=== PATIENT | male | born 1965 | race Caucasian/White ===

== ENCOUNTER 2017-02-18 09:15 | Inpatient (IN) ==
--- NOTE | 2017-02-18 11:37 | Cardiology History & Physical ---
Date of Encounter: 02/18/17 Time of Encounter: 11:25 Assessment and Plan (1) Atrial flutter with rapid ventricular response Current Visit: Yes Status: Acute The assessment and plan as outlined above was discussed with the patient and/or family members who expressed understanding and agreement. All questions were answered. New diagnosis of atrial flutter with RVR. HR increased to 260 bpm during stress test. HR decreased to 130's with rest. Unknown onset. C/o dyspnea and vision changes with activity for the last two months. Likely related to atrial flutter. Start heparin gtt for AC. Start cardizem gtt for rate control. CHADS VASC 1 for HTN. Stress echocardiogram pending. Will need full echocardiogram once heart rate is better controlled. Check TSH. Recommend EP consult for further recommendation. (2) Hypertension Current Visit: Yes Status: Acute The assessment and plan as outlined above was discussed with the patient and/or family members who expressed understanding and agreement. All questions were answered. B/p acceptable. Hold losartan to allow for rate controlling meds. Qualifiers: Hypertension type: essential hypertension Qualified Code(s): I10 - Essential (primary) hypertension History of Present Illness Chief complaint: dyspnea HPI: Mr. Harley is a 51 year old male with a history of hypertension and tobacco abuse who presented for scheduled exercise stress echocardiogram. Stress test was ordered by his PCP for the c/o dyspnea and vision changes with exertion. Symptoms started two and a half months ago and occur with any exertional activity. He first noticed his symptoms when he was push mowing. During his stress test he developed wide complex tahycardia with HR up to 260 bpm. He c/o dyspnea. His stress test was stopped and he was instructed to cough. Oxygen was applied. Defibrillator pads were applied. The patient remained alert and oriented and his b/p was 140/86. IV was started and NS started. After about 2 min his HR slowed down to 140 on its own. He denies chest pain. EKG reviewed by the plush brusher and he was seen to have atrial flutter with RVR. He is now recommended for admission for continued atrial flutter with RVR. He denies previous cardiac history. Reports having an echocardiogram Past Med Surg Social Fam HX - Past Medical History Medical history: arthritis, GERD, hypertension Psychiatric history: anxiety, depression - Past Surgical History Surgical History: appendectomy, herniorrhaphy - Social History Smoking Status: Current every day smoker Smokeless Tobacco Status: No Alcohol use: none Drug use: none Medications and Allergies Gabapentin [Gralise] 300 mg PO 1-3XD PRN #90 tab 12/15/14 [Rx] Losartan Potassium [Cozaar] 50 mg PO DAILY 02/18/17 [History] 3 Allergy/AdvReac Type Severity Reaction Status Date / Time lisinopril AdvReac Anaphylaxis Verified 12/15/14 08:59 All Systems Review: A 10-system review of systems was performed and is negative for pertinent findings except as documented above in the HPI. Physical Examination HR 138, b/p 140/86, resp 22, General: Conversant, No Apparent Distress, Other (warm and sweating) HEENT: Atraumatic, Normocephaly, Mucus Membranes Moist Neck: No JVD, Normal carotid pulses Cardiac: Other (irregular) Lungs: Normal Breath Sounds, No Wheeze, Rales, Rhonchi Neuro: Alert and responsive, No focal deficits noted Abdomen: Soft, Non-Tender Skin: No rashes noted on visualized skin Musculoskeletal: No Chest Wall Tenderness Extremities: No Clubbing, No Cyanosis, No Edema, Normal Pulses Results - Imaging and Cardiology Stress Test: pending Echo: pending - EKG Interpretation EKG results cardiology: personally reviewed (Initial EKG thought to be NSR with first degree block and RBBB. Regular. Reviewed with EP and EKG read as aflutter 2:1)
[2017-02-18] MEDS ORDERED: Naloxone 0.4 MG/ML INJ IVP PRN (11:53)
--- NOTE | 2017-02-18 12:30 | Electrophysiology Consult Note ---
<Osman Kyle R - Last Filed: 02/18/17 12:41> Date of Encounter: 02/18/17 Time of Encounter: 12:28 Assessment and Plan (1) Atrial flutter with rapid ventricular response Current Visit: Yes Status: Acute Per EP: New diagnosis of atrial flutter with RVR. HR increased to 260 bpm during stress test. HR decreased to 130's with rest. Unknown onset. C/o dyspnea and vision changes with activity for the last two months. Likely related to atrial flutter. Start heparin gtt for AC. Start cardizem gtt for rate control. CHADS VASC 1 for HTN. Will discuss if longterm anticoagulation is warranted. Heparin for now. Stress echocardiogram pending. Will need full echocardiogram once heart rate is better controlled. Check TSH, CBC, BMP. Recommend rate control strategy for now. Will continue to follow and await stress echo results for further recommendations. Discussion w patient/family: The assessment and plan as outlined above was discussed with the patient and/or family members who expressed understanding and agreement. All questions were answered. Thank you for involving us in the care of your patient. Please call with any questions. I will discuss all the above with Dr. Dane Velazquez and make changes as necessary. History of Present Illness Consult date: 02/18/17 Requesting physician: Jeb Mclain Consult reason: A-Flutter RVR Chief complaint: dyspnea, lightheadedness History of present illness: Mr. Harley is a 51 year old male with a history of hypertension and tobacco abuse who presented for outpatient exercise stress echocardiogram. Stress test was ordered by his PCP for the c/o dyspnea and vision changes with exertion. Symptoms started two and a half months ago and occur with any exertional activity. He first noticed his symptoms when he was push mowing. During his stress test he developed wide complex tahycardia with HR up to 260 bpm. He c/o dyspnea. His stress test was stopped and he was instructed to cough. Oxygen was applied. Defibrillator pads were applied. The patient remained alert and oriented and his b/p was 140/86. IV was started and NS started. After about 2 min his HR slowed down to 140 on its own. He denies chest pain. EKG reviewed by the mri technician and he was seen to have atrial flutter with RVR. He is now recommended for admission for continued atrial flutter with RVR. He denies previous cardiac history. EP consulted for new diagnosis of A-Flutter. Past Med Surg Social Fam HX - Past Medical History Medical history: arthritis, GERD, hypertension Psychiatric history: anxiety, depression - Past Surgical History Surgical History: appendectomy, herniorrhaphy - Social History Smoking Status: Current every day smoker Smokeless Tobacco Status: No Alcohol use: none Drug use: none Medications and Allergies Buprenorphin-Naloxon 8-2 mg Sl 0.5 tab SL 1-2XD 02/18/17 [History] Losartan Potassium [Cozaar] 50 mg PO DAILY 02/18/17 [History] Naproxen 550 mg PO 1-2XD 02/18/17 [History] Omeprazole [PriLOSEC] 20 mg PO DAILY 02/18/17 [History] Tamsulosin [Flomax] 0.4 mg PO DAILY 02/18/17 [History] hydroCHLOROthiazide [Hydrochlorothiazide] 50 mg PO 02/18/17 [History] 3 Allergy/AdvReac Type Severity Reaction Status Date / Time lisinopril AdvReac Anaphylaxis Verified 12/15/14 08:59 All Systems Review: A 10-system review of systems was performed and is negative for pertinent findings except as documented above in the HPI. - Cardiovascular Cardiovascular: as per HPI, dyspnea at rest, dyspnea on exertion - Neurological Neurological: loss of vision Physical Examination Intake and Output 02/17/17 02/18/17 02/18/17 23:59 07:59 15:59 Other: Weight 106 kg Patient Weight 02/18/17 23:59 Weight 106 kg General: Conversant, No Apparent Distress HEENT: Atraumatic, Normocephaly, Mucus Membranes Moist Neck: No JVD, Normal carotid pulses Cardiac: Other (irregular) Lungs: Normal Breath Sounds, No Wheeze, Rales, Rhonchi Neuro: Alert and responsive, No focal deficits noted Abdomen: Soft, Non-Tender Skin: No rashes noted on visualized skin Musculoskeletal: No Chest Wall Tenderness Extremities: No Clubbing, No Cyanosis, No Edema, Normal Pulses Results - Imaging and Cardiology Stress Test: pending - EKG Interpretation EKG results cardiology: personally reviewed (A-Flutter RVR) Consult Discharge Plan - Plan Referrals: Jose Mccabe, PAC [Primary Care Provider] - <Dane Velazquez - Last Filed: 02/18/17 15:17> Date of Encounter: 02/18/17 - Attending Attestation I have personally performed a face to face evaluation on this patient. I have reviewed and agree with the care plan. History and Exam by me shows: Underwent stress test and was noted to be in atrial flutter with RVR. On further history has probably been in uncontrolled AFL for several weeks. Would rate control and anticoagulate and check echo. Assessment and Plan Discussion w patient/family: The assessment and plan as outlined above was discussed with the patient and/or family members who expressed understanding and agreement. All questions were answered. Thank you for involving us in the care of your patient. Please call with any questions. History of Present Illness History of present illness: Mr. Harley is a 51 year old male All Systems Review: A 10-system review of systems was performed and is negative for pertinent findings except as documented above in the HPI. Physical Examination Vital Signs, Last 4 Hours Temp Pulse Resp BP Pulse Ox 02/18/17 12:46 100.5 F H 141 14 125/102 96 Results 02/18/17 12:36 02/18/17 12:36 Lab Results 02/18/17 02/18/17 02/18/17 12:36 12:36 12:36 WBC 8.9 Hgb 16.0 Hct 47.7 Plt Count 228 INR 1.1 Sodium 139 Potassium 3.7 Chloride 103 Carbon Dioxide 26 BUN 21 Creatinine 0.73 Glucose 107 H Calcium 9.3 TSH 1.263
[2017-02-18] MEDS: dilTIAZem HCl 100 MG in D5% in Water 50 ML IVC SCH ×2 (12:34→19:59)
[2017-02-18] MEDS ORDERED: FLUARIX QUAD 2017-18 36MOS UP/PF 0.5 ML SYRINGE IM ONE (13:01)
[2017-02-18 13:23] LABS: Basophils # 0.1 K/mcL (0.0-0.2); Basophils % 0.9 %; Eosinophils % 0.1 %; Hematocrit 47.7 % (37.5-50.1); Immature Granulocytes % 0.3 % (0-4); Lymphocytes # 1.8 K/mcL (0.6-4.6); Lymphocytes % 20.3 %; Mean Corpuscular HGB Conc 33.5 g/dL (31.6-35.5); Mean Corpuscular Hemoglobin 29.6 pg (28.0-33.3); Mean Corpuscular Volume 88.2 fL (83.0-100.0); Mean Platelet Volume 10.8 fL (9.4-12.4); Monocytes # 0.5 K/mcL (0.0-1.3); Monocytes % 5.4 %; Neutrophils # 6.5 K/mcL (1.6-8.9); Platelet Count 228 K/mcL (140-400); Red Blood Count 5.41 M/mcL (4.19-5.50); Red Cell Distribution Width 13.2 % (11.5-14.5)
[2017-02-18 13:26] LABS: INR 1.1; Prothrombin Time 11.5 Seconds (9.4-12.1)
[2017-02-18 13:33] LABS: BUN/Creatinine Ratio 29 (6-26); Blood Urea Nitrogen 21 mg/dL (8-26); Calcium 9.3 mg/dL (8.6-10.8); Carbon Dioxide 26 mEq/L (19-29); Chloride 103 mEq/L (98-109); Glucose 107 mg/dL (70-99); Osmolality,Calculated 291 (280-300); Potassium 3.7 mEq/L (3.5-4.5); Sodium 139 mEq/L (136-145); eGFR For African Americans > 60 (> 60); eGFR For Non-African Americans > 60 (> 60)
[2017-02-18 13:55] LABS: Thyroid Stimulating Hormone 1.263 mcIU/mL (0.350-4.840)
[2017-02-18] MEDS ORDERED: *HR* Heparin 5,000 UNIT/ML VIAL IVP ONE (15:45)
[2017-02-18] MEDS ORDERED: *HR* Heparin 5,000 UNIT/ML VIAL IVP PRN ×2 (15:45)
[2017-02-18 16:41] LABS: Hematocrit 46.4 % (37.5-50.1); Hemoglobin 15.7 g/dL (12.9-16.9); Mean Corpuscular HGB Conc 33.8 g/dL (31.6-35.5); Mean Corpuscular Hemoglobin 29.7 pg (28.0-33.3); Mean Corpuscular Volume 87.9 fL (83.0-100.0); Mean Platelet Volume 10.9 fL (9.4-12.4); Platelet Count 218 K/mcL (140-400); Red Blood Count 5.28 M/mcL (4.19-5.50); Red Cell Distribution Width 13.2 % (11.5-14.5)
[2017-02-18 16:55] LABS: INR 1.1; Prothrombin Time 12.3 Seconds (9.4-12.1)
[2017-02-18 17:10] LABS: Activated Partial Thrombo Time 32.8 Seconds (26.0-36.0)
[2017-02-18] MEDS: Heparin 25,000 UNIT/500 ML D5W 25,000 UNIT/500 ML MLS IVC SCH (17:32)
[2017-02-18] MEDS ORDERED: *HR* Buprenorphine HCl 2 MG SUBLINGUAL TABLET SL SCH (18:00)
--- NOTE | 2017-02-18 18:31 | Electrocardiograph Report ---
[address] [place] [address] Test Date: 2017-02-18 Pat Name: Shadi Harley Department: 106 Room: 11 Gender: M Evaluation Manager: : 1965 Requested By: Riccardo Ibarra Order Number: [id number] Reading MD: Kaylah Velazquez Measurements Intervals [place] Rate: 116 P: TX: 0 QRS: -27 QRSD: 116 T: 21 QT: 292 QTc: 361 Interpretive Statements ATRIAL FLUTTER WITH RAPID VENTRICULAR RESPONSE INCOMPLETE RIGHT BUNDLE BRANCH BLOCK SEPTAL MYOCARDIAL INFARCTION, PROBABLY OLD Electronically Signed On 02-18-2017 18:29:06 EST by Kaylah Velazquez
[2017-02-18] MEDS ORDERED: (Buprenorphine Hcl/Naloxone Hcl [Suboxone 8 Mg-2 Mg S) SL SCH (20:00)
[2017-02-19] MEDS: Heparin 25,000 UNIT/500 ML D5W 25,000 UNIT/500 ML MLS IVC SCH (08:53)
[2017-02-19] MEDS: *HR* Buprenorphine HCl 2 MG SUBLINGUAL TABLET SL SCH ×2 (08:55→15:48)
[2017-02-19] MEDS ORDERED: APIXABAN 5 MG TABLET PO SCH (11:45)
[2017-02-19] MEDS ORDERED: Diltiazem CD (24hr) 180 MG CAPSULE PO SCH (11:45)
--- NOTE | 2017-02-19 13:32 | Discharge Summary ---
Date of Encounter: 02/19/17 Time of Encounter: 13:29 - Discharge Diagnosis (1) Atrial flutter with rapid ventricular response Priority: Primary Status: Acute (2) Hypertension Priority: Secondary Status: Chronic Qualifiers: Hypertension type: essential hypertension Qualified Code(s): I10 - Essential (primary) hypertension - Discharge Medications Prescriptions: Apixaban [Eliquis] 5 mg PO BID #60 tablet Diltiazem CD (24hr) [Cardizem CD] 180 mg PO DAILY #30 cap.er.24h Home Medications: Buprenorphine HCl/Naloxone HCl [Suboxone 8 mg-2 mg Sl Film] 0.25 each SL 1999 [History] Buprenorphine HCl/Naloxone HCl [Suboxone 8 mg-2 mg Sl Film] 0.5 each SL 0800, 1400 02/18/17 [History] Omeprazole [PriLOSEC] 20 mg PO DAILY 02/18/17 [History] Tamsulosin [Flomax] 0.4 mg PO DAILY 02/18/17 [History] hydroCHLOROthiazide [Hydrochlorothiazide] 50 mg PO DAILY 02/18/17 [History] Apixaban [Eliquis] 5 mg PO BID #60 tablet 02/19/17 [Rx] Diltiazem CD (24hr) [Cardizem CD] 180 mg PO DAILY #30 cap.er.24h 02/19/17 [Rx] Allergies/Adverse Reactions: 3 Allergy/AdvReac Type Severity Reaction Status Date / Time lisinopril AdvReac Anaphylaxis Verified 12/15/14 08:59 Procedures/tests Complete & Pending: Procedures Performed prior 72 hours Category Date Time Status ECG 12 lead ECG [ECG] Routine Y 02/18/17 10:53 Completed EV stress echo Routine Y 02/18/17 09:30 Completed Date of admission: 02/19/17 09:11 Primary care physician: Jose Mccabe Consults: None Discharging clinician: Jeb Mclain Anticipated date of discharge: 02/19/17 - Patient Status Disposition: Home, Self-Care Condition: Good Functional capacity at discharge: independent ambulation Overall status at discharge: patient is progressing back to baseline - Discharge Instructions Follow Up With: Jose Mccabe, PAC [Primary Care Provider] - - Diet and Activity Activity: increase activity as tolerated Diet: low fat, low cholesterol - Hospital Course Hospital course: Mr. Harley is a 51 year old male with a history of HTN and tobacco use who presented for an out patient stress echocardiogram. He developed atrial flutter / afib with RVR, HR 260 bpm during his exam. Baseline EKG showed 2:1 atrial flutter, initially thought to be SR with 1st degree block. Unknown timing of onset. Patient c/o dyspnea and vision changes with exertional activity for the last two and a half months. He did complete his stress echocardiagram. Stress images and EKG was non-diagnostic for ischemia in the setting of arrhythmia. LVEF was 55%. Inconclusive stress test results reviewed with Dr. Ibarra. Patient denies chest pain. Symptoms likely from atrial flutter. Can consider alternative stress test in the future if indicated. No further testing in- patient. TSH was normal. He was seen by EP and rate control therapy and anticoagulation is recommended for now. He was rate controlled on cardizem gtt and converted to oral cardizem. His losartan was discontinued to allow for addition of cardizem. Avg HR over the last 24 hours was 85 bpm. Anticoagulation with warfarin VS NOAC indication, use, and SE reviewed. He was agreeable to NOAC. Eliquis was pantoja checked and he does not have a co-pay. He is now being discharged home with close out-pt f/u for further recommendations. WIll need full TTE in the near future. Follow-up will be scheduled in the afib clinic in 1-2 weeks. Time spent discussing smoking cessation with patient: more than 10 minutes - Time Spent with Patient Total time spent providing and/or coordinating discharge services:1hr Greater than 30 minutes Physical Examination Vital Signs, Last 4 Hours Temp Pulse Resp BP Pulse Ox 02/19/17 12:57 91 20 100/70 95 02/19/17 12:01 97.8 F General: Conversant, No Apparent Distress HEENT: Atraumatic, Normocephaly, Mucus Membranes Moist Neck: No JVD, Normal carotid pulses Cardiac: Other (Irregularly irregular.) Lungs: Normal Breath Sounds, No Wheeze, Rales, Rhonchi Neuro: Alert and responsive, No focal deficits noted Abdomen: Soft, Non-Tender Skin: No rashes noted on visualized skin Musculoskeletal: No Chest Wall Tenderness Extremities: No Clubbing, No Cyanosis, No Edema, Normal Pulses - VTE Reasons for not Prescribing Prophylaxis: Not indicated-Anticoagulated or INR therapeutic
[2017-02-19 16:31] VITALS: BP 103/71
== END 2017-02-19 16:28 | disposition home or self-care (01) | DRG 201 ==
LOC: ICNU 09:15 → CARSER 09:15
PROVIDERS: ADMIT Emergency Medicine; ATTEND Emergency Medicine